=== PATIENT | female | born 1995 | race Caucasian/White ===

== ENCOUNTER 2021-12-22 10:31 | Inpatient (IN) | payer OTHER ==
[~2021-12-22] VITALS: Ht 167.6 cm; Wt 117.0 kg
[~2021-12-22 10:31] MED LIST: IBUPROFEN800 MG PO; KEFLEX500 MG PO; ROBAXIN750 MG PO
[2021-12-22 11:39] LABS: PROTEIN:CREATININE 1.01 RATIO; URINE CREATININE 71.12 mg/dL (29.00-226.00)
[2021-12-22 11:43] LABS: HCT 35.4 % (37.0-47.0); HGB 11.8 g/dl (12.5-16.0); MCH 28.9 pg (25.0-31.0); MCHC 33.3 g/dL (32.0-36.0); MCV 86.6 fL (78.0-100.0); MPV 10.8 fL (6.0-9.5); RBC 4.09 M/uL (4.20-5.40); RDW 13.5 % (11.5-14.0); WBC 6.7 K/uL (4.0-10.5)
[2021-12-22 12:03] LABS: ALBUMIN 2.7 g/dL (3.4-5.0); BILIRUBIN - TOTAL 0.2 mg/dL (0.2-1.0); BUN/CREAT RATIO (CALC) 14.7 RATIO; CREATININE 0.75 mg/dL (0.51-0.95); GLOBULIN (CALCULATION) 3.9 g/dL; POTASSIUM 4.1 mmol/L (3.5-5.1); TOTAL PROTEIN 6.6 g/dL (6.4-8.2); URIC ACID 8.8 mg/dL (2.6-6.2)
[2021-12-22 12:13] LABS: BILIRUBIN NEGATIVE (NEGATIVE); BLOOD NEGATIVE Ery/uL (NEGATIVE); CLARITY CLEAR (CLEAR); COLOR YELLOW (YELLOW); GLUCOSE (U) NORMAL (NORMAL); LEUKOCYTES NEGATIVE Leu/uL (NEGATIVE); NITRITE NEGATIVE (NEGATIVE); PROTEIN 1+ mg/dL (NEGATIVE); SPECIFIC GRAVITY 1.015 (1.001-1.030); UROBILINOGEN 0.2 mg/dL (0.2-1.0)
[2021-12-22 12:20] LABS: AMPHETAMINES NEGATIVE (NEGATIVE); BARBITURATES NEGATIVE (NEGATIVE); ECSTASY (MDMA) NEGATIVE (NEGATIVE); MARIJUANA (THC) NEGATIVE (NEGATIVE); METHADONE NEGATIVE (NEGATIVE); OPIATES NEGATIVE (NEGATIVE); OXYCODONE NEGATIVE (NEGATIVE)
[2021-12-22 12:28] LABS: BACTERIA 1+; URINARY RBC RARE
[2021-12-24 08:43] LABS: HGB 11.4 g/dl (12.5-16.0); MCH 29.2 pg (25.0-31.0); MCHC 33.5 g/dL (32.0-36.0); MCV 87.2 fL (78.0-100.0); MPV 11.1 fL (6.0-9.5); RBC 3.9 M/uL (4.20-5.40); RDW 13.8 % (11.5-14.0); WBC 10.6 K/uL (4.0-10.5)
[2021-12-25 04:06] LABS: HCT 31.3 % (37.0-47.0); HGB 9.9 g/dl (12.5-16.0); MCH 28.3 pg (25.0-31.0); MCHC 31.6 g/dL (32.0-36.0); MCV 89.4 fL (78.0-100.0); MPV 11.2 fL (6.0-9.5); RBC 3.5 M/uL (4.20-5.40); WBC 14.7 K/uL (4.0-10.5)
[2021-12-25] MEDS ORDERED: ADALAT CC30 MG PO (11:34)
[2021-12-25] MEDS ORDERED: KETOROLAC TROME10 MG PO (11:38)
[2021-12-25] MEDS ORDERED: PRENATAL FORMU1 EACH PO (11:38)
[2021-12-25] MEDS ORDERED: COLACE100 MG PO (11:38)
[2021-12-25] MEDS ORDERED: FEOSOL325 MG PO (11:38)
[2021-12-25] MEDS ORDERED: ACETAMINOPHEN325 MG PO (11:38)
[2021-12-25] MEDS ORDERED: FOLIC ACID1 MG PO (11:38)
== END 2021-12-26 14:35 | disposition home or self-care (01) | DRG 786 ==
LOC: FIS 10:31 → FOB 10:31 → FIS 13:08 → FOB 13:09
PROVIDERS: Specialist; ADMIT Obstetrics & Gynecology
PROC: 10907ZC Drainage of Amniotic Fluid, Therapeutic from Products of Conception, Via Natural or Artificial Opening (ICD-10-PCS; 2021-12-24)
PROC: 10D00Z1 Extraction of Products of Conception, Low, Open Approach (ICD-10-PCS; principal; 2021-12-24 11:00)
DX: O14.04 Mild to moderate pre-eclampsia, complicating childbirth (principal); U07.1 COVID-19; O98.52 Other viral diseases complicating childbirth; Z3A.37 37 weeks gestation of pregnancy; O99.214 Obesity complicating childbirth; Z37.0 Single live birth; O76 Abnormality in fetal heart rate and rhythm complicating labor and delivery; O24.429 Gestational diabetes mellitus in childbirth, unspecified control; O90.81 Anemia of the puerperium; O16.5 Unspecified maternal hypertension, complicating the puerperium
CPT/HCPCS: 36415; 76818; 80053; 80305; 81001; 82009; 82570; 82947; 82962; 83615; 84156; 84550; 85461; 86850; 86900; 86901; J0456; J0690; J1100; J1200; J1885; J2405; J2790; J7050; J7120; J7121; U0002